=== PATIENT | male | born 1990 | race African-American/Black ===

== ENCOUNTER 2022-12-31 13:39 | Outpatient (AMB) | payer MEDICAID, SELFPAY ==
[2022-12-31 13:43] VITALS: PULSE 92; O2SAT 96; BMI 56.1
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
== END 2022-12-31 15:04 | disposition home or self-care (01) ==
PROVIDERS: PCP Internal Medicine; Visit Provider Nurse Practitioner Family
DX: G47.33 Obstructive sleep apnea (adult) (pediatric) (principal)
CPT/HCPCS: 99203

== ENCOUNTER → 2022-12-31 13:39 | Outpatient (BNVA) | payer OTHER, SELFPAY | PROVIDERS: PCP Internal Medicine; Visit Provider Nurse Practitioner Family | DX: G47.33 Obstructive sleep apnea (adult) (pediatric) (principal) | CPT/HCPCS: 99203 ==

== ENCOUNTER 2023-04-05 08:29 | Outpatient (AMB) | payer OTHER, SELFPAY ==
--- NOTE | 2023-04-05 08:47 | A.OFFVIS_ITS ---
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 The PSG sleep study result was significant for severe degree of sleep apnea. The AHI was 50/hr and oxygen bandar was 65%. He underwent titration study and started APAP [id number]. The CPAP compliance and therapy response (02/28/23-03/29/23) reviewed. He is on APAP [id number]. The usage days 27% and the average usage hours 4 hrs 26 min. The AHI was 6.3/hr and the max pressure was 19.3. Pt reports he sleeps a little better, and can sleep more. He feels a little refreshed. Denies AM headache. PFSH Family History (Updated 04/05/23 @ 08:48 by Melani Artis CMA) Mother Diabetes Social History (Updated 04/05/23 @ 08:49 by Melani Artis CMA) Alcohol intake: never Patient Tobacco Use Status: Former Tobacco user Review of Systems Const All systems reviewed & are unremarkable except as noted in HPI and below ENT Reports Normal hearing present Neuro Reports Normal hearing present Physical Exam Vital Signs: Last Vital Signs Pulse 97 04/05/23 08:49 BP 140/96 H 04/05/23 08:49 Pulse Ox 96 04/05/23 08:49 Oxygen Delivery Method Room Air 04/05/23 08:49 Const General: cooperative Nutritional Appearance: obese Orientation/consciousness: patient oriented x3 Neck Neck: Yes full ROM and Yes supple Resp Effort & Inspection: normal respiratory effort and able to speak in complete sentences Neuro General: patient oriented x3, gait normal and moves all extremities Cranial nerves: Yes Bilaterally intact EOM present, Yes Normal facial strength present, Yes Midline tongue present, Yes Symmetric palate elevation present, Yes Normal hearing present, Yes Ability to bilaterally rotate head present, Yes Ability to bilaterally elevate shoulders present and Yes Individual cranial nerve findings present Cognition (Neuro): normal cognition Gait exam (Neuro): Normal gait present Motor exam (neuro): 5/5 motor strength present throughout, Pronator motor function not present and no tremor noted Psych Appearance: grossly normal Mental Status: mental status grossly normal Speech and movement: Normal speech and movement present Affect: normal affect Attitude: cooperative Assessment & Plan Assessment & Plan (1) NARENDRA (obstructive sleep apnea): Comment: Severe degree of sleep apnea. The AHI was 50/hr and oxygen bandar was 65%. Code(s): G47.33 - Obstructive sleep apnea (adult) (pediatric) Plan Continue to use APAP [id number] as patient experiences good clinical effects. Stressed compliance, use CPAP nightly and more than 4hrs. Wt reduction advised. Coding Level of Care Code Est Pt Level 3 (24380) Diagnoses NARENDRA (obstructive sleep apnea) G47.33
[2023-04-05 08:49] VITALS: BP 140/96; PULSE 97; O2SAT 96
== END 2023-04-05 09:06 | disposition home or self-care (01) ==
PROVIDERS: PCP Internal Medicine; Visit Provider Nurse Practitioner Family
DX: G47.33 Obstructive sleep apnea (adult) (pediatric) (principal)
CPT/HCPCS: 99213

== ENCOUNTER → 2023-04-05 08:29 | Outpatient (BNVA) | payer OTHER, SELFPAY | PROVIDERS: PCP Internal Medicine; Visit Provider Nurse Practitioner Family | CPT/HCPCS: 99212 ==

== ENCOUNTER 2023-07-09 13:57 | Outpatient (AMB) | payer OTHER, SELFPAY ==
--- NOTE | 2023-07-09 14:05 | MHC.OFFVIS ---
Intake Vital Signs 07/09/23 14:08 Height 5 ft 9 in Weight 373 lb 8 oz BMI 55.2 BP 144/100 H Blood Pressure Location Lt brachial Position Sitting Pulse 96 Pulse Source Pulse Oximeter Pulse Oximetry (%) 96 Oxygen Delivery Method Room Air Intake Visit Reasons: 3 mo f/u for Mike - LVM Intake Note: Patient presents feels unconfortable using the mask Allergies No Known Allergies Allergy (Verified 04/05/23 08:47) HPI HPI Comments History of Present Illness Details 32 y/o male patient presents for follow up of sleep study. The PSG sleep study result was significant for severe degree of sleep apnea. The AHI was 50/hr and oxygen bandar was 65%. He underwent titration study and started APAP [id number]. The CPAP compliance and therapy response (02/22/23-05/22/23) reviewed. He is on APAP [id number]. The usage days 31% and the average usage hours 4 hrs 20 min. The AHI was 2.9/hr and the max pressure was 17.9 Pt reports he sleeps a little better at the beginning, but the mask bother his sleep. He feels uncomfortable to wear mask while he sleep. He uses nasal mask now. PFSH Family History Mother Diabetes Social History Alcohol intake: never Patient Tobacco Use Status: Former Tobacco user Review of Systems Const All systems reviewed & are unremarkable except as noted in HPI and below ENT Reports Normal hearing present Neuro Reports Normal hearing present Physical Exam Vital Signs: Last Vital Signs Pulse 96 07/09/23 14:08 BP 144/100 H 07/09/23 14:08 Pulse Ox 96 07/09/23 14:08 Oxygen Delivery Method Room Air 07/09/23 14:08 BMI result Body Mass Index 55.2 Const General: cooperative Nutritional Appearance: obese Orientation/consciousness: patient oriented x3 Neck Neck: Yes full ROM and Yes supple Resp Effort & Inspection: normal respiratory effort and able to speak in complete sentences Neuro General: patient oriented x3, gait normal and moves all extremities Cranial nerves: Yes Bilaterally intact EOM present, Yes Normal facial strength present, Yes Midline tongue present, Yes Symmetric palate elevation present, Yes Normal hearing present, Yes Ability to bilaterally rotate head present, Yes Ability to bilaterally elevate shoulders present and Yes Individual cranial nerve findings present Cognition (Neuro): normal cognition Gait exam (Neuro): Normal gait present Motor exam (neuro): 5/5 motor strength present throughout, Pronator motor function not present and no tremor noted Psych Appearance: grossly normal Mental Status: mental status grossly normal Speech and movement: Normal speech and movement present Affect: normal affect Attitude: cooperative Assessment & Plan Assessment & Plan (1) MKIE (obstructive sleep apnea): Comment: Severe degree of sleep apnea. The AHI was 50/hr and oxygen bandar was 65%. Code(s): G47.33 - Obstructive sleep apnea (adult) (pediatric) Plan Continue to use APAP [id number]. New CPAP mask fitting order given to patient to try different masks. Stressed compliance, use CPAP nightly and more than 4hrs. Wt reduction advised. Coding Level of Care Code Est Pt Level 3 (35823) Diagnoses MIKE (obstructive sleep apnea) G47.33
[2023-07-09 14:08] VITALS: BP 144/100; PULSE 96; O2SAT 96; BMI 55.2
== END 2023-07-09 14:23 | disposition home or self-care (01) ==
PROVIDERS: PCP Internal Medicine; Visit Provider Nurse Practitioner Family
DX: G47.33 Obstructive sleep apnea (adult) (pediatric) (principal)
CPT/HCPCS: 99213

== ENCOUNTER → 2023-07-09 13:57 | Outpatient (BNVA) | payer OTHER, SELFPAY | PROVIDERS: PCP Internal Medicine; Visit Provider Nurse Practitioner Family | DX: G47.33 Obstructive sleep apnea (adult) (pediatric) (principal) | CPT/HCPCS: 99212 ==